=== PATIENT | female | born 1930 | race Caucasian/White ===

== ENCOUNTER 2016-06-01 09:29 | Outpatient (CLI) | payer MEDICARE, OTHER ==
[2016-06-01 10:00] LABS: BASOPHILS % 0.4 (0.0-1.5); EOSINOPHILS % 0.8 % (0.0-6.8); LYMPHOCYTES # 1.8 # k/uL (0.6-4.0); MEAN CORPUSCULAR HEMOGLOBIN 33.9 pg (28.0-34.0); MONOCYTES # 0.3 # k/uL (0.0-0.9); MONOCYTES % 4.7 % (0.0-11.0); NEUTROPHILS # 4.3 # k/uL (1.4-7.7)
[2016-06-01 18:31] LABS: IRON SERUM 180 ug/dL (37-145)
== END 2016-06-01 09:30 ==
LOC: LAB 09:29
PROVIDERS: ATTEND Internal Medicine
DX: E83.110 Hereditary hemochromatosis (principal)
CPT/HCPCS: 36415; 82728; 83540; 85025

== ENCOUNTER 2016-09-08 08:40 | Outpatient (CLI) | payer MEDICARE, OTHER ==
[2016-09-08 09:07] LABS: BASOPHILS % 0.6 (0.0-1.5); EOSINOPHILS % 0.8 % (0.0-6.8); MEAN CORPUSCULAR HEMOGLOBIN 34.3 pg (28.0-34.0); MEAN CORPUSCULAR VOLUME 96.5 fl (80.0-100.0); NEUTROPHILS # 5.3 # k/uL (1.4-7.7)
[2016-09-08 18:02] LABS: IRON SERUM 146 ug/dL (37-145)
== END 2016-09-08 08:42 ==
LOC: LAB 08:40
PROVIDERS: ATTEND Internal Medicine
DX: E83.110 Hereditary hemochromatosis (principal)
CPT/HCPCS: 36415; 82728; 83540; 85025

== ENCOUNTER 2016-11-16 08:37 | Outpatient (CLI) | payer MEDICARE, OTHER ==
[2016-11-16 09:16] LABS: BASOPHILS % 0.9 (0.0-1.5); EOSINOPHILS % 0.8 % (0.0-6.8); MEAN CORPUSCULAR VOLUME 98.9 fl (80.0-100.0); MONOCYTES % 5.1 % (0.0-11.0); NEUTROPHILS # 4.5 # k/uL (1.4-7.7)
[2016-11-16 16:31] LABS: IRON SERUM 82 ug/dL (37-145)
== END 2016-11-16 08:40 ==
LOC: LAB 08:37
PROVIDERS: ATTEND Internal Medicine
DX: E83.110 Hereditary hemochromatosis (principal); E78.5 Hyperlipidemia, unspecified; I34.8 Other nonrheumatic mitral valve disorders
CPT/HCPCS: 36415; 82728; 83540; 85025

== ENCOUNTER 2017-07-07 09:34 | Outpatient (CLI) | payer MEDICARE, OTHER ==
[2017-07-07 09:54] LABS: BASOPHILS % 0.4 (0.0-1.5); EOSINOPHILS % 1.8 % (0.0-6.8); MEAN CORPUSCULAR HEMOGLOBIN 33.6 pg (28.0-34.0); MEAN CORPUSCULAR VOLUME 96.1 fl (80.0-100.0); MONOCYTES % 7.3 % (0.0-11.0); NEUTROPHILS # 4.8 # k/uL (1.4-7.7)
[2017-07-07 18:41] LABS: IRON SERUM 158 ug/dL (37-145)
== END 2017-07-07 09:40 ==
LOC: LAB 09:34
PROVIDERS: ATTEND Internal Medicine
DX: E83.110 Hereditary hemochromatosis (principal); I34.8 Other nonrheumatic mitral valve disorders
CPT/HCPCS: 36415; 82728; 83540; 85025

== ENCOUNTER 2017-10-05 10:05 | Outpatient (CLI) | payer MEDICARE, OTHER ==
[2017-10-05 10:22] LABS: BASOPHILS % 0.6 (0.0-1.5); EOSINOPHILS % 0.8 % (0.0-6.8); MEAN CORPUSCULAR HEMOGLOBIN 32.6 pg (28.0-34.0); MEAN CORPUSCULAR VOLUME 95.6 fl (80.0-100.0); MONOCYTES % 7.2 % (0.0-11.0); NEUTROPHILS # 4.7 # k/uL (1.4-7.7)
[2017-10-05 19:11] LABS: IRON SERUM 131 ug/dL (37-145)
== END 2017-10-05 10:06 ==
LOC: LAB 10:05
PROVIDERS: ATTEND Internal Medicine
DX: I34.8 Other nonrheumatic mitral valve disorders (principal); E83.110 Hereditary hemochromatosis
CPT/HCPCS: 36415; 82728; 83540; 85025

== ENCOUNTER 2017-10-11 10:42 | Outpatient (CLI) | payer MEDICARE, OTHER ==
[2017-10-11 11:07] LABS: APPEARANCE,URINE CLOUDY (CLEAR); COLOR,URINE YELLOW (YELLOW); OCCULT BLOOD,URINE 1+ (NEGATIVE); UROBILINOGEN URINE 0.2 Eu (0.2-1.0)
== END 2017-10-11 10:43 ==
LOC: LAB 10:42
PROVIDERS: ATTEND Internal Medicine
DX: R39.81 Functional urinary incontinence (principal)
CPT/HCPCS: 81002; 87086